=== PATIENT | female | born 1945 | race Caucasian/White ===

== ENCOUNTER 2016-08-19 17:32 | Emergency (ER) | payer OTHER ==
[~2016-08-19] VITALS: Ht 170.2 cm; Wt 59.3 kg
[~2016-08-19 17:32] MED LIST: ACTONEL35 MG PO; ADVAIR 250/501 DISK IH; ALLERGY MED; DELTASONE20 M1 PO; LEVAQUIN750 MG PO; LIPITOR20 MG PO; PROAIR HFA8.5 GM IH; ZITHROMAX Z-PA250 MG PO
[2016-08-19] MEDS ORDERED: PEPCID20 MG PO (18:13)
[2016-08-19] MEDS ORDERED: BENADRYL25 MG PO (18:13)
[2016-08-19 18:18] VITALS: BP 153/99
== END 2016-08-19 18:13 | disposition home or self-care (01) ==
LOC: EME 17:32
DX: R21 Rash and other nonspecific skin eruption (principal); J45.909 Unspecified asthma, uncomplicated; Z88.0 Allergy status to penicillin
CPT/HCPCS: 99281; 99283

== ENCOUNTER 2016-10-02 06:58 | Emergency (ER) | payer OTHER ==
[~2016-10-02] VITALS: Ht 152.4 cm; Wt 58.5 kg
[~2016-10-02 06:58] MED LIST changes: +BENADRYL25 MG PO; +PEPCID20 MG PO
[2016-10-02] MEDS ORDERED: MEDROL DOSEPAK4 MG PO (07:15)
[2016-10-02] MEDS ORDERED: ATARAX,VISTARIL25 MG PO (07:15)
[2016-10-02 07:35] VITALS: BP 123/88
== END 2016-10-02 07:37 | disposition home or self-care (01) ==
LOC: EME 06:58
DX: L20.9 Atopic dermatitis, unspecified (principal); J45.909 Unspecified asthma, uncomplicated
CPT/HCPCS: 99281; 99283; J7509

== ENCOUNTER 2017-05-22 10:19 | Emergency (ER) | payer OTHER ==
[~2017-05-22] VITALS: Ht 152.4 cm; Wt 51.9 kg
[~2017-05-22 10:19] MED LIST changes: +ATARAX,VISTARIL25 MG PO; +MEDROL DOSEPAK4 MG PO; +PROVENTIL,2.5 MG/3 M IH
[2017-05-22 11:09] LABS: HEMOGLOBIN 13.9 G/DL (11.9-15.5); MCH 30.4 PG (29.0-34.0); MCHC 33.9 G/DL (30.0-36.0); MCV 89.7 FL (83-99); PLATELET COUNT 228 K/uL (156-360); RBC DIS.WIDTH-CV 12.6 % (11.8-14.6); RBC DIS.WIDTH-SD 41.3 % (39-53); RED BLOOD COUNT 4.57 M/uL (3.80-5.20)
[2017-05-22 11:23] LABS: CHLORIDE 106 mEq/L (99-109); POTASSIUM 3.8 mEq/L (3.7-5.4); SODIUM 142 mEq/L (136-147)
[2017-05-22 11:25] LABS: GLUCOSE 95 mg/dL (70-99)
[2017-05-22 11:29] LABS: CREATININE 0.9 mg/dL (0.6-1.3); GFR ESTIMATE (CALCULATED) > 59 mL/min/; UREA NITROGEN (BUN) 9 mg/dL (9-23)
[2017-05-22] MEDS ORDERED: PREDNISONE20 MG PO (15:47)
[2017-05-22] MEDS ORDERED: ZITHROMAX Z-PA250 MG PO (15:47)
[2017-05-22 16:06] VITALS: BP 111/73
== END 2017-05-22 16:07 | disposition home or self-care (01) ==
LOC: EME 10:19
DX: J45.901 Unspecified asthma with (acute) exacerbation (principal); J06.9 Acute upper respiratory infection, unspecified; F32.9 Major depressive disorder, single episode, unspecified; Z88.0 Allergy status to penicillin
CPT/HCPCS: 71046; 80048; 85027; 94640; 94644; 99281; 99285; J2930